=== PATIENT | female | born 1940 | race Caucasian/White ===

== ENCOUNTER 2024-11-02 05:35 | Inpatient (IN) | payer MEDICARE, SELFPAY ==
[2024-11-02] VITALS (20 sets, daily range): BP systolic 112–169; BP diastolic 45–79; BMI 26.2
[2024-11-02] MEDS: ZOFRAN ODT (ORALLY DISINTEGRATING) 4 MG PO (01:30)
[2024-11-02 01:55] LABS: % Basophils 0.3 % (0-2); % Eosinophils 0.3 % (0-6); % Immature Granulocytes 0.2 % (0-0.5); % Lymphocytes 11.7 % (20.5-51.1); % Monocytes 3.2 % (1.7-9.3); % Neutrophils 84.3 % (42.2-75.2); Absolute Lymphocytes 1.6 10^3/uL (1.2-3.4); Absolute Monocytes 0.4 10^3/uL (0.1-0.6); Absolute Neutrophils 11.1 10^3/uL (1.4-6.5); Hematocrit 41.2 % (37.0-47.0); Hemoglobin 13.8 g/dL (12.0-16.0); Mean Corp Hgb Conc. 33.5 g/dL (33.0-37.0); Mean Corpuscular Hgb 30.7 pg (27.0-31.0); Mean Corpuscular Volume 91.6 fL (81.0-99.0); Mean Platelet Volume 9.9 fL (7.4-10.4); Nucleated Red Blood Cells % 0 %; Platelet Count 253 10^3/uL (130-400); Red Cell Dist. Width 13.8 % (11.5-14.5); White Blood Cell Count 13.2 10^3/uL (4.8-10.8)
[2024-11-02 02:11] LABS: ALT (SGPT) 31 U/L (0-35); AST (SGOT) 40 U/L (14-36); Albumin 4.9 g/dl (3.5-5.0); Alkaline Phosphatase 64 U/L (38-126); Blood Urea Nitrogen 18 mg/dl (7-17); Calcium 9.8 mg/dl (8.4-10.2); Carbon Dioxide 27 mmol/L (22-30); Chloride 104 mmol/L (98-107); Glucose 165 mg/dl (70-99); Lipase 132 U/L (23-300); Potassium 4.7 mmol/L (3.5-5.1); Sodium 139 mmol/L (135-145); Total Bilirubin 0.8 mg/dl (0.2-1.3); Total Protein 8.2 g/dl (6.3-8.2); eGFR > 60.00
--- NOTE | 2024-11-02 02:22 | ED.GENMED ---
History of Present Illness
General
Chief Complaint: Abdominal Pain
Source: patient
Exam Limitations: none
Time Seen by Provider: 11/02/24 02:05
Nursing documentation reviewed up to this point in time: agreed with
History of Present Illness
History of Present Illness:
84-year-old female presents emergency room due to nausea vomiting and diffuse abdominal pain. She denies any diarrhea.
Past History
Past History
ED Past Medical History: Hypercholesterolemia and Other (Vertigo)
ED Past Surgical History:
Social History
Tobacco: Non-smoker
Alcohol: None
Drug: None
Personal:
Living: with family
Employment: Employed
Family History
Family History: CAD
Review of Systems
Review of Systems
Allergies reviewed?: Yes
All Other Systems: Not applicable
Constitutional: Reports no symptoms
EENT: Reports no symptoms
Respiratory: Reports no symptoms
Cardiac: Reports no symptoms
ABD/GI: Reports abdominal pain, nausea and vomiting
: Reports no symptoms
Musculoskeletal: Reports no symptoms
Skin: Reports no symptoms
Neurological: Reports no symptoms
Endocrine: Reports no symptoms
Hematologic/Lymphatic: Reports no symptoms
Psychiatric: Reports no symptoms
Phy Exam
Physical Exam
Physical Exam:
Physical Exam
General: Appears uncomfortable, afebrile pain
Neck: supple. no meningeal signs. normal posterior pharynx
Heart: s1/s2 regular rate and rhythm, no murmur. equal radial
pulses.
HEENT: Pupils equal round reactive to light, EOMI
Lungs: no acute respiratory distress. clear bilaterally
Abdomen: normal bowel sounds. Diffuse abdominal tenderness. no CVAT
Neuro: alert and oriented. no focal neurological deficits cranial nerves II through XII intact
Skin: no rash
Psychiatric: well kept. interactive and cooperative
Extremities: no edema. no calf tenderness. negative homans. good distal pulses
Course
Orders/Labs/Results
Orders:
Orders
11/02/24 01:29
Ondansetron Orally Disint [Zofran Odt (Orally Disintegrating)] 4 mg .ROUTE .STK-MED ONE
11/02/24 01:30
Ondansetron Orally Disint [Zofran Odt (Orally Disintegrating)] 4 mg PO NOW STA
11/02/24 01:46
Complete Blood Count/With Diff Urgent
Comprehensive Metabolic Panel Urgent
Lipase Urgent
11/02/24 02:21
Morphine Sulfate 4 mg IV NOW STA
Ondansetron Injectable [Zofran] 4 mg IV NOW STA
11/02/24 02:35
CT Abd/pel Without Iv Or Oral Urgent
Comment:
Reason For Exam: diffuse abd pain, n/v
11/02/24 03:20
Morphine Sulfate 4 mg .ROUTE .STK-MED ONE
11/02/24 03:22
Morphine Sulfate 4 mg IV NOW STA
11/02/24 04:00
Lactated Ringers [Lr] 1,000 ml IV BOLUS
11/02/24 04:21
NG Tube [GI tube insertion- Treatment] ONCE
Piperacillin/Tazo 4.5 Gram [Zosyn] 4.5 gram in 100 ml IV NOW
11/02/24 04:31
Lactic Acid Q4H
Comment: CANCEL 2nd LACTIC ACID IF 1st LACTIC ACID IS LESS THAN 2
11/02/24 04:44
Admit/Transfer Patient As Directed
Co-Sign Provider:
Level of Care: Inpatient admission
Assign to:: Medical/Surgical
Physician / Group: Julián
Diagnosis: SBO
Reason for Hospitalization: SBO
Expected length of stay greater than two midnights?: Yes
ELOS- Estimated Length of Stay in days: 2
I certify the patient meets the requirements for IP care: Yes
Lidocaine 2% [Lidocaine Uro-Jet 2%] 1 syringe .ROUTE .STK-MED ONE
PRN Pain Medication Management As Directed
May give lesser potent ordered pain med per pt: Yes
preference::
Protocol:: Medication orders for pain may be administered in a
manner that supports deferring to patient preference
when the pt is:
- Requesting an ordered lesser potent pain medication.
Least to most potent pain medications are defined
as: acetaminophen < NSAID < tramadol < opioids
(morphine, oxycodone, hydromorphone).
- Requesting a lesser dose of the same medication IF
ORDERED.
- Requesting a less intrusive route of administration
if both routes are prescribed by the provider (PO <
IV).
11/02/24 04:45
Code Status As Directed
Resuscitation Status: Full Code
11/02/24 04:54
Ondansetron Injectable [Zofran] 4 mg .ROUTE .STK-MED ONE
11/02/24 04:55
Ondansetron Injectable [Zofran] 4 mg IV NOW STA
11/02/24 05:09
Lidocaine 2% Mpf [Xylocaine Mpf 2%] 100 mg .ROUTE .STK-MED ONE
Propofol [Diprivan] 20 ml .ROUTE .STK-MED
Rocuronium [place] [Rocuronium] 50 mg .ROUTE .STK-MED ONE
11/02/24 05:17
Dexamethasone Sod Phosphate [Decadron] 20 mg .ROUTE .STK-MED ONE
Ondansetron Injectable [Zofran] 4 mg .ROUTE .STK-MED ONE
11/02/24 05:25
Fentanyl Citrate/Pf [Sublimaze] 100 mcg .ROUTE .STK-MED ONE
11/02/24 05:32
HYDROmorphone [Dilaudid] 0.25 mg IV PACU-Q5MPRN PRN
Meperidine [Demerol] 12.5 mg IV PACU-Q5MPRN PRN
Morphine Sulfate 1 mg IV PACU-Q5MPRN PRN
Ondansetron Injectable [Zofran] 4 mg IV PACU-ONCEPRN PRN
Prochlorperazine [Compazine] 5 mg IV PACU-ONCEPRN PRN
Notify MD As Directed
Notify physician if: for SDS patients with known or suspected sleep obstructive sleep apnea, monitor in the
PACU.
Notify MD for any apneic/desaturation episodes
O2 Therapy [RESP] Urgent
Titrate/Wean O2 to maintain O2 sat greater than (%): 92
Special Instructions: -Provide supplemental oxygen to achieve O2 sat of 92% or greater.
-After 15 min, may wean O2 and discontinue if patient is able to maintain O2 sat of 92%
or greater during recovery period.
If patient is a discharge home, without oxygen therapy, notify anestheiologist if
unable to maintain O2 SAT of 92% or greater on room air for MD clearance.
11/02/24 05:45
Normosol (Mult Electrolytes) [Normosol-R/Plasmalyte-A] 1,000 ml IV PER PROTOCOL
11/02/24 08:15
Lactic Acid Q4H
Comment: CANCEL 2nd LACTIC ACID IF 1st LACTIC ACID IS LESS THAN 2
Abnormal Lab Results
11/02/24 11/02/24
01:46 04:31
WBC 13.2 H 10^3/uL
(4.8-10.8)
Absolute Neuts (auto) 11.1 H 10^3/uL
(1.4-6.5)
Neutrophils % 84.3 H %
(42.2-75.2)
Lymphocytes % 11.7 L %
(20.5-51.1)
BUN 18 H mg/dl
(7-17)
Glucose 165 H mg/dl
(70-99)
Lactic Acid 3.2 H mmol/L
(0.7-2.0)
AST 40 H U/L
(14-36)
11/02/24 01:46
11/02/24 01:46
Vital Signs
Initial and Last Documented VS:
Initial Vital Signs
Temp Pulse Resp BP Pulse Ox
97.4 F 66 24 128/76 98
11/02/24 01:21 11/02/24 01:21 11/02/24 01:21 11/02/24 01:21 11/02/24 01:21
Last Documented Vital Signs
Temp Pulse Resp BP Pulse Ox
98.0 F 63 18 157/74 98
11/02/24 05:14 11/02/24 05:15 11/02/24 05:15 11/02/24 04:00 11/02/24 04:45
*Radiology
Radiology exam reviewed: radiology read reviewed (CT abdomen pelvis shows internal hernia with small bowel obstruction)
*Pulse Oximetry
Patient hypoxic: no
*Critical Care Note
Total Time (30-74mins, 75-104mins- exclusive of procedures): 32
comment:
Critical care statement: A total of 32 minutes of critical care time was provided for this patient. This includes management of unstable vital signs, evaluation of the patient at bedside, reviewing the patient's pertinent medical records, discussion
with consultants, review of old EKGs and review of pertinent medical records. This time with separate from time utilized to perform the aforementioned documented procedures
Patient Management
Social determinants of health affecting care: Living situation and Strong social support
Discussion with other providers: Hospitalist and Testing And Regulating Chief (Dr. Patel to take the OR.)
Escalation/DeEscalation of care consider admission/obs:
Admission did, directly to the OR
ED Attending Note
-
Portions of this chart may have been created with voice recognition software.� Occasional wrong word or��sound alike� substitutions may have occurred due to the inherent limitations of voice recognition software.
Discharge Plan
Departure
Patient Disposition: Admit
Date of Disposition: 11/02/24
Time of Disposition: 04:19
Admit to: OR
Presentation/result/management discussed w/ accepting MD/DO: Hospitalist
Patient with high blood pressure during this ER visit?: Yes
Condition: Good
Discharge Problem:
Internal hernia, Small bowel obstruction
Interventions
Interventions:
*Risk Screen - Suicide Last Done: 11/02/24 01:21
*General Assessment Last Done: 11/02/24 02:08
*Neglect/Abuse Screening Last Done: 11/02/24 01:21
*ED- Fall Risk Assessment Last Done: 11/02/24 02:08
*ED COVID-19 Vaccine History Last Done: 11/02/24 02:08
*Nursing Disposition Last Done: 11/02/24 05:55
GS-Tormyn-Jkrlysqucy Assessment Last Done: 11/02/24 02:08
Discharge Date and Time
Discharge Date/Time: 11/02/24 05:55
[2024-11-02] MEDS: ZOFRAN 4 MG IV ×2 (02:24→04:55)
[2024-11-02] MEDS: MORPHINE SULFATE 4 MG IV ×2 (02:24→03:22)
[2024-11-02] MEDS: LR 1000 IV (03:17)
[2024-11-02] MEDS: ZOSYN 100 IV (04:40)
--- NOTE | 2024-11-02 04:47 | HPS.HSE ---
Family Physician
-
Family Physician: Azul Sewell
Chief Complaint
-
Abd Pain, N/V
History of Present Illness
Patient is an 84y F with PMH significant for rheumatoid arthritis who presents to ED complaining of abdominal pain with N/V. Patient states that she was in her usual state of health until around 7PM this evening when she developed sudden onset
of upper abdominal pain. Pateint became nauseated and has had multiple episodes of non-bloody emesis overnight. Her symptoms persisted throughout the evening and she presented to the ED for further evaluation and treatment.
Patient denies any prior history of similar symptoms.
She denies any fevers / chills, diarrhea, bloody stools, etc. Her last BM was yesterday AM and was normal.
Medical History
Past Medical History
Past Medical History: Reports Other
Additional Past Medical History:
Rheumatoid Arthritis
GERD
Macular Degeneration
Dyslipidemia
Past Surgical History: Reports Other
Additional Past Surgical History:
Lumpectomy (Benign)
Cataracts
Social History
Tobacco: Non-smoker
Alcohol: None
Drug: None
Personal:
Living: With Family
Family History
Family History: Not pertinent
Allergies / Home Medications
Allergies reflects when Allergies were last updated in [employer].
Home Medications with original date entered in [employer]
Allergy/Medication List:
Allergies
Allergy/AdvReac Type Severity Reaction Status Date / Time
banana Allergy congestion Verified 11/02/24 01:24
clarithromycin [From Biaxin] Allergy fever Verified 11/02/24 01:24
strawberry Allergy congestion Verified 11/02/24 01:24
iv contrast Allergy Unknown Uncoded 11/02/24 02:40
Home Medications
aspirin 81 mg chewable tablet 81 mg PO . 1 TO 2 PER WEEK 11/29/14
ascorbic acid (vitamin C) 500 mg tablet (Vitamin C) 500 mg PO DAILY 06/27/18
rosuvastatin 5 mg tablet (Crestor) 5 mg PO .Q48H 06/27/18
fluticasone propionate 50 mcg/actuation nasal spray,suspension 1 spray intranasal DAILY PRN nasal congestion 12/06/22
cholecalciferol (vitamin D3) 100 mcg (4,000 unit) capsule 100 mcg PO ONCE 11/02/24
folic acid 2 tab PO DAILY 11/02/24
methotrexate sodium 2.5 mg tablet 15 mg PO QWEEK 11/02/24
omeprazole 20 mg capsule,delayed release 20 mg PO DAILY 11/02/24
Review of Systems
-
History Source: Patient
A 12 point ROS was completed and negative except as noted: Yes
Constitutional: Denies Fever or Chills
Respiratory: Denies Cough or Trouble Breathing
Cardiac: Denies Chest Pain or Palpitations
Abdomen/GI: Reports Abdominal Pain, Nausea and Vomiting; Denies Diarrhea or Constipated
: Denies Dysuria or Frequency
Musculoskeletal: Reports Joint Pain; Denies Edema
Neurological: Denies Dizzy or Headache
Physical Exam
Vital Signs
Vital Signs
Temp Pulse Resp BP Pulse Ox
98.3 F 78 19 157/74 96
11/02/24 02:45 11/02/24 04:15 11/02/24 04:15 11/02/24 04:00 11/02/24 04:15
Physical Exam
General: Other (84y F in no acute distress.)
HEENT: Moist mucous membranes and PERRLA
Respiratory: Clear; No Wheezes, Rales or Rhonchi
Cardiac: S1/S2 and Regular Rhythm; No Murmur
GI: Other (Bowel sounds present but diminished. Pos tenderness - mostly in the LUQ. No rebound / guarding.)
Musculoskeletal: No Clubbing, No Cyanosis and No Edema
Neuro: AO x 3
Laboratory Results
-
11/02/24 01:46
11/02/24 01:46
Laboratory Results
Total Bilirubin 0.8 mg/dl (0.2-1.3) 11/02/24 01:46
AST 40 U/L (14-36) H 11/02/24 01:46
ALT 31 U/L (0-35) 11/02/24 01:46
Alkaline Phosphatase 64 U/L (38-126) 11/02/24 01:46
Lipase 132 U/L (23-300) 11/02/24 01:46
Impression/Plan
-
A/P: Patient is an 84y F with PMH significant for RA who presents to ED complaining of abdominal pain with N/V starting this evening.
SBO
- Admit for further evaluation and treatment.
- CT scan shows dilated loops of small bowel in the LUQ.
- NG to be placed in the ED for decompression.
- NPO, IVFs, pain control and antiemetics.
- Surgery evaluation for additional recommendations.
- Follow for clinical improvement.
Rheumatoid Arthritis
- Stable. Hold MTX acutely.
GERD
- Stable. Continue PPI daily.
Dyslipidemia
- Takes statin + ASA for elevated lipids / calcium score.
- No prior TX, stent, etc. OK to hold acutely.
DVT Prophylaxis: SCDs
Code Status: Full
[2024-11-02 05:13] LABS: Lactic Acid 3.2 mmol/L (0.7-2.0)
--- NOTE | 2024-11-02 05:55 | CON.GS ---
Consultation
-
Date/Time Consultation Performed: 11/02/24
Requesting Provider: Nataly
Performing Provider: Amanda
Reason for Consultation: Abd pain
Medical History
-
Chief Complaint: Abd pain
History of Present Illness:
84F with acute onset abd pain, localized to left aaliyah-abdomen that began last night at 7PM. Pain progressive, severe, nonradiating, a/w n/v. Denies f/c. Normal BM yesterday. Never had similar issue in the past.
Past Medical History
Past Medical History: Other (Rheumatoid Arthritis GERD Macular Degeneration Dyslipidemia)
Past Surgical History: and Other (lumpectomy)
Social History
Tobacco: Non-Smoker
Alcohol: None
Drug: None
Personal:
Living: With Family
Family History
Family History: Reviewed & Noncontributory
Allergies / Home Medications
Allergy/AdvReac Type Severity Reaction Status Date / Time
banana Allergy congestion Verified 11/02/24 01:24
clarithromycin [From Biaxin] Allergy fever Verified 11/02/24 01:24
strawberry Allergy congestion Verified 11/02/24 01:24
iv contrast Allergy Unknown Uncoded 11/02/24 02:40
�Medication �Instructions �Recorded �Confirmed �Type
aspirin 81 mg chewable tablet 81 mg PO . 1 TO 2 PER WEEK 05/14/14 11/02/24 History
ascorbic acid (vitamin C) 500 mg 500 mg PO DAILY 06/27/18 11/02/24 History
tablet (Vitamin C)
rosuvastatin 5 mg tablet (Crestor) 5 mg PO .Q48H 06/27/18 11/02/24 History
fluticasone propionate 50 1 spray intranasal DAILY PRN nasal 12/06/22 11/02/24 History
mcg/actuation nasal congestion
spray,suspension
cholecalciferol (vitamin D3) 100 100 mcg PO ONCE 11/02/24 11/02/24 History
mcg (4,000 unit) capsule
folic acid 2 tab PO DAILY 11/02/24 11/02/24 History
methotrexate sodium 2.5 mg tablet 15 mg PO QWEEK 11/02/24 11/02/24 History
omeprazole 20 mg capsule,delayed 20 mg PO DAILY 11/02/24 11/02/24 History
release
Review of Systems
-
A 10 point review of systems was completed, and was negative except as per HPI.
Physical Exam
Vital Signs
Temp Pulse Resp BP Pulse Ox
98.0 F 63 18 157/74 98
11/02/24 05:14 11/02/24 05:15 11/02/24 05:15 11/02/24 04:00 11/02/24 04:45
10/31/24 11/01/24 11/02/24
06:59 06:59 06:59
Actual Weight 62.8 kg
Body Mass Index (BMI) 26.2
Lab Results
11/02/24 01:46
11/02/24 01:46
WBC 13.2 10^3/uL (4.8-10.8) H 11/02/24 01:46
Hgb 13.8 g/dL (12.0-16.0) 11/02/24 01:46
Hct 41.2 % (37.0-47.0) 11/02/24 01:46
Plt Count 253 10^3/uL (130-400) 11/02/24 01:46
Abs Immat Gran (auto) 0.0 10^3/uL (0-0.05) 11/02/24 01:46
Neutrophils % 84.3 % (42.2-75.2) H 11/02/24 01:46
Physical Exam
General: No Apparent Distress
GI: Soft and Tender (tt light palp LUQ with guarding, no tt light perc)
Skin: Warm and Dry
Neuro: AO x 3
Psych: Calm
Data Reviewed
-
CT Scan: Image Personally Visualized and interpreted, Report Reviewed by me, Discussed with Physician, Discussed with Patient and Discussed with Family
Labs: Labs Reviewed by me and Discussed with Physician
Assessment / Plan
-
84F with suspected closed loop SBO
AFVSS, tt light palp with guarding
Leukocytosis with left shift
CT with two apparent t-points in LUQ and a segment of small bowel with stranding and edema, no PV gas, no pneumatosis, no free air
Plan:
OCTOR for dx lap, possible ex lap, possible SBR
D/w patient and , expected procedure and post-op course discussed.
Informed consent obtained
All ?s answered
--- NOTE | 2024-11-02 07:22 | W.IMMPOSTOP ---
Surgical Immed Post Op Note
-
Primary Surgeon: Amanda
Pre-op Diagnosis: Closed loop small bowel obstruction
Post-op Diagnosis: Same
Procedure Performed: Diagnostic laparoscopy, lysis of adhesions, exploratory laparotomy, small bowel resection
Anesthesia Type: GETA
Specimen / Cultures: Small bowel
Estimated Blood Loss: 5cc
Complications: None immediate
Operative Findings: Omental bridge from transverse colon to small bowel mesentery with internal herniation of small bowel. Bridge lysed, loop of small bowel hemorrhagic and ischemic, approx 38cm small bowel resected, side-side stapled anastomosis,
ng verified in stomach
--- NOTE | 2024-11-02 07:24 | OR.RPT ---
Operative Report
Operative Report
Primary Surgeon: Amanda
Pre-op Diagnosis: Closed loop small bowel obstruction
Post-op Diagnosis: Same
Procedure Performed: Diagnostic laparoscopy, lysis of adhesions, exploratory laparotomy, small bowel resection
Anesthesia Type: GETA
Specimen / Cultures: Small bowel
Estimated Blood Loss: 5cc
Complications: None immediate
Operative Findings: Omental bridge from transverse colon to small bowel mesentery with internal herniation of small bowel. Bridge lysed, loop of small bowel hemorrhagic and ischemic, approx 38cm small bowel resected, side-side stapled anastomosis,
ng verified in stomach
Date of Surgery: 11/02/24
Indications: This 84F developed acute abdominal pain and on workup was found to have suspected closed loop small bowel obstruction. Diagnostic laparoscopy, possible exploratory laparotomy, possible small bowel resection was planned.
Description of procedure: The patient was placed on the operating table in the supine position. General anesthesia was induced. A time-out was completed verifying correct patient, procedure, site, positioning, and special equipment prior to
beginning this procedure. An orogastric tube was placed. The abdomen was prepped and draped in the usual sterile fashion. A stab incision was made in left upper quadrant and the Veress needle was inserted. Proper position was confirmed by aspiration
and saline meniscus test. The abdomen was insufflated with carbon dioxide to a pressure of 12 mmHg. The patient tolerated insufflation well. Initially the stomach was not decompressed. Anesthesia replaced the nasogastric tube and the stomach
decompressed nicely.
A 5mm optical trocar was then inserted at the right upper quadrant. The laparoscope was inserted and the abdomen inspected. No injuries from initial trocar placement or Veress needle insertion were noted. Additional 5mm trocars were then inserted in
the right lower quadrant and the suprapubic space. The abdomen was inspected and no abnormalities were found. The omentum was swept cephalad revealing a distended loop of small bowel. The transition point was identified and an omental bridge from
the transverse colon to the small bowel mesentery was noted. The voyant device was used to divide the bridge and liberate the bowel. The bowel was inspected and appeared ischemic and hemorrhagic. A limited supra-umbilical midline incision was made
and a small Jeancarlos wound protector was placed. The ischemic loop of bowel was exteriorized and resected with a YOKASTA 80mm purple load stapler and a side-side stapled anastomosis was created. The common channel was inspected prior to closure and was
hemostatic. The anastomosis was palpated and patency was confirmed. The voyant was used to liberate the resected bowel from its mesentery. Corners were dunked with 3-0 vicryl suture, a crotch stitch was placed and reinforcing sutures were placed in
Lembert fashion along the staple line. The mesenteric defect was closed with 3-0 vicryl.
We then turned our attention to the staple line, which was noted to be hemostatic. The abdomen was irrigated with sterile saline until effluent ran clear. The fascia was closed with 0 PDS stratafix suture. The subcutaneous tissue was irrigated with
sterile saline and the skin was lcosed with rachna. Topical dressings were applied.
The patient tolerated the procedure well and was taken to the postanesthesia care unit in stable condition.
[2024-11-02] MEDS: PROTONIX IV 40 MG IV (08:33)
[2024-11-02] MEDS: MORPHINE SULFATE 1 MG IV (08:42)
[2024-11-02] MEDS: ZOSYN 50 IV ×3 (09:45→22:02)
--- NOTE | 2024-11-02 13:12 | W.PN.UPDATE ---
Update Note
Progress Note Update
Non-billable addendum
Admitted 430 AM for SBO (closed loop) requiring urgent SBR and LUZMA this AM
Currently resting post-op
Assessment:
high grade SBO (closed loop on CT
- CT: High-grade proximal small bowel obstruction likely secondary to internal hernia. Cannot rule out developing ischemia.
- GS evaluated
- s/p urgent Diagnostic laparoscopy, lysis of adhesions, exploratory laparotomy, small bowel resection 11/02/24
- NPO/IVF
- NGT per GS
- pain control, anti-emetics
- continue IV Zosyn
Rheumatoid Arthritis
- Stable. Hold MTX acutely.
GERD
- Stable. Continue PPI daily.
Dyslipidemia
- Takes statin + ASA for elevated lipids/calcium score.
- No prior GA, stent, etc. OK to hold acutely.
DVT Prophylaxis: Lovenox
Code Status: Full
[2024-11-02] MEDS: NSS 1000 IV (13:37)
--- NOTE | 2024-11-02 14:30 | PTCARENOTE ---
Pt received from the PACU via bed. Transport was w/o incident. Pt is AAOx3, HRR, lungs are clear, abd sl tender with 4 Lap sites covered w/bandaids and one mid abd mepilex dressing, all intact. Scant spot of bloody drainage on bandaids. VSS, Pt is
afebrile. Pt instructed on plan of care. Pt verbalized understanding of instructions. Call bragg is within reach.
[2024-11-02] MEDS: NSS (PRESERVATIVE FREE) IV (16:21)
[2024-11-02] MEDS: LOVENOX 40 MG SC (18:10)
[2024-11-02] MEDS: DILAUDID 0.25 MG IV (22:19)
[2024-11-03] MEDS: NSS 1000 IV ×2 (01:25→13:38)
[2024-11-03 03:10] VITALS: BP 151/75
[2024-11-03] MEDS: ZOSYN 50 IV ×4 (04:26→21:03)
[2024-11-03] MEDS: PEPCID 20 MG IV (05:24)
[2024-11-03] MEDS: DECADRON 4 MG IV (05:26)
[2024-11-03] MEDS: NSS (PRESERVATIVE FREE) 8 ML IV (05:26)
[2024-11-03 07:11] LABS: Hematocrit 32.5 % (37.0-47.0); Hemoglobin 11.1 g/dL (12.0-16.0); Mean Corp Hgb Conc. 34.2 g/dL (33.0-37.0); Mean Corpuscular Hgb 31.3 pg (27.0-31.0); Mean Corpuscular Volume 91.5 fL (81.0-99.0); Mean Platelet Volume 10.3 fL (7.4-10.4); Platelet Count 218 10^3/uL (130-400); Red Blood Cell Count 3.55 10^6/uL (4.20-5.40); Red Cell Dist. Width 14.3 % (11.5-14.5)
[2024-11-03 07:35] VITALS: BP 149/61
[2024-11-03 08:21] LABS: Blood Urea Nitrogen 13 mg/dl (7-17); Calcium 7.8 mg/dl (8.4-10.2); Carbon Dioxide 27 mmol/L (22-30); Chloride 110 mmol/L (98-107); Estimated Creatinine Clearance 53 ml/min; Glucose 108 mg/dl (70-99); Potassium 3.9 mmol/L (3.5-5.1); Sodium 140 mmol/L (135-145); eGFR > 60.00
[2024-11-03] MEDS: HYDROCORTISONE 2.5% OINTMENT 1 APPLIC TOPICAL ×2 (08:49→21:03)
[2024-11-03] MEDS: NSS (PRESERVATIVE FREE) 10 ML IV (08:49)
[2024-11-03] MEDS: PROTONIX IV 40 MG IV (08:49)
[2024-11-03 09:09] LABS: Lactic Acid 1.2 mmol/L (0.7-2.0)
--- NOTE | 2024-11-03 09:29 | W.PN.HOSP.TC ---
Today's Communication/Plan
-
continue IVF/NPO
NGT
await ROBF
IV Abx
add IS
ambulate
Assessment / Plan
Assessment / Plan
Assessment:
high grade SBO (closed loop on CT
- CT: High-grade proximal small bowel obstruction likely secondary to internal hernia. Cannot rule out developing ischemia.
- GS following
- s/p urgent Diagnostic laparoscopy, lysis of adhesions, exploratory laparotomy, small bowel resection 11/02/24
- NPO/IVF
- NGT per GS
- pain control, anti-emetics
- continue IV Zosyn x 72 hours post-op, reviewed with Dr. Patel
Lactic acidosis from bowel ischemia
- resolved
Hypocalcemia
- monitor, if low again tomorrow will replete
Rheumatoid Arthritis
- Stable. Hold MTX acutely.
GERD
- Stable. Continue PPI daily.
Dyslipidemia
- Takes statin + ASA for elevated lipids/calcium score.
- No prior MN, stent, etc. OK to hold acutely.
DVT Prophylaxis: Lovenox
Code Status: Full
Anticipated Discharge: > 48 hours
Subjective/Interval History
-
Date of Service: November 03, 2024
s/p bowel resection surgery for SBO
NG remains in place
denies n/v
awaiting flatus or BM
eager to ambulate the halls
Objective Data
-
Labs:
Laboratory Results
11/03/24
06:42
WBC 11.0 H
Hgb 11.1 L
Hct 32.5 L
Plt Count 218
Sodium 140
Potassium 3.9
Chloride 110 H
Carbon Dioxide 27
BUN 13
Creatinine 0.7
Glucose 108 H
Calcium 7.8 L D
Vital Signs:
Vital Signs
Temp Pulse Resp BP Pulse Ox
98.5 F 80 18 149/61 98
11/03/24 07:35 11/03/24 07:35 11/03/24 07:35 11/03/24 07:35 11/03/24 07:35
I&O
11/02/24 11/03/24 11/04/24
06:59 06:59 06:59
Intake Total 2580 / 2580
Output Total 975 / 975
Balance 1605 / 1605
Physical Exam
-
General: No Apparent Distress
HEENT: Normocephalic, Atraumatic and Other (+NGT)
Respiratory: Negative Wheezes
Cardiac: Regular Rhythm and S1/S2
GI: Soft
Genito-urinary: No Costovertebral Tender
Neuro: AO x 3
Psych: Calm
Data Reviewed
-
Total Time Spent with Patient (in minutes): 42
Labs: Labs Reviewed by me
--- NOTE | 2024-11-03 09:42 | CM ---
Cm reviewed medical records. CM confirmed demographics. Patient lives independently. Patient does not have a history of VN, SNF or DME. Patient is active with her PCP. Patient will use [facility].
PLAN: home independently, strong family support.
--- NOTE | 2024-11-03 10:18 | W.PN.GS2 ---
Addendum entered and electronically signed by Jae Patel MD 11/03/24 10:26:
Pruritic macular rash to upper extremities legs and back, fading since d/c dilaudid
Ofimrev and toradol for pain for now
Original Note:
Today's Communication / Plan
-
NPO/IVF/NGT
IV abx
Assessment / Plan
-
84F POD1 s/p dx lap LUZMA converted to ex-lap for SBR of ischemic bowel
Low grade temp noted, otherwise VSS
Pain improving, exam approp
Low NGT output and taking ice chips
WBC improved, lactic normalized, Cr WNL
Plan:
NPO/IVF/NGT
Await ROBF
PRN pain meds and anti-emetics
DVT ppx
72 hrs post op IV abx
Ambulate (OK to clamp NGT for ambulation)
Subjective Data
-
Date of Service: November 03, 2024
Tmax 100.1, VSS, pain improving, denies n/v with ngt to suction, denies flatus or BM
Objective Data
-
Intake and Output
11/02/24 11/03/24 11/04/24
06:59 06:59 06:59
Intake Total 2580 / 2580
Output Total 975 / 975
Balance 1605 / 1605
Intake:
Oral fluids 480 / 480
IV fluids (Total) 1800 / 1800
Normosal 600 / 600
IV piggybacks 150 / 150
Amount instilled into GI Tube ( 150 / 150
Total)
[place] Sump 150 / 150
Output:
Gastrointestinal tube output ( 475 / 775
Total)
[place] Sump 775 / 775
Urine, Voided 200 / 200
Other:
Number of approximated MODERATE 2
amounts of urine
Number of approximated LARGE 1
amounts of urine
How many times incontinent 3
MODERATE amount urine
Vital Signs
Temp Pulse Resp BP Pulse Ox
98.5 F 80 18 149/61 98
11/03/24 07:35 11/03/24 07:35 11/03/24 07:35 11/03/24 07:35 11/03/24 07:35
Lab Results
11/03/24 06:42
11/03/24 06:42
Calcium 7.8 mg/dl (8.4-10.2) L D 11/03/24 06:42
Total Bilirubin 0.8 mg/dl (0.2-1.3) 11/02/24 01:46
AST 40 U/L (14-36) H 11/02/24 01:46
ALT 31 U/L (0-35) 11/02/24 01:46
Alkaline Phosphatase 64 U/L (38-126) 11/02/24 01:46
Total Protein 8.2 g/dl (6.3-8.2) 11/02/24 01:46
Albumin 4.9 g/dl (3.5-5.0) 11/02/24 01:46
Physical Exam
-
Gen: NAd
Abd: soft, incisions cdi, dressing cdi, moderately distended, approp ttp
Patient has a camacho catheter: No
Patient has a central line: No
[2024-11-03 15:35] VITALS: BP 139/68
[2024-11-03] MEDS: LOVENOX 40 MG SC (17:51)
[2024-11-03 23:00] VITALS: BP 131/62
[2024-11-04] MEDS: NSS IV (02:26)
[2024-11-04] MEDS: NSS 1000 IV ×3 (03:04→20:02)
[2024-11-04] MEDS: ZOSYN 50 IV (04:28)
[2024-11-04 06:12] LABS: Hematocrit 35.1 % (37.0-47.0); Hemoglobin 11.9 g/dL (12.0-16.0); Mean Corp Hgb Conc. 33.9 g/dL (33.0-37.0); Mean Corpuscular Hgb 31.2 pg (27.0-31.0); Mean Corpuscular Volume 91.9 fL (81.0-99.0); Mean Platelet Volume 10.6 fL (7.4-10.4); Platelet Count 237 10^3/uL (130-400); Red Blood Cell Count 3.82 10^6/uL (4.20-5.40); Red Cell Dist. Width 14.4 % (11.5-14.5); White Blood Cell Count 12.7 10^3/uL (4.8-10.8)
[2024-11-04 06:32] LABS: Blood Urea Nitrogen 13 mg/dl (7-17); Calcium 8.6 mg/dl (8.4-10.2); Carbon Dioxide 24 mmol/L (22-30); Chloride 109 mmol/L (98-107); Estimated Creatinine Clearance 53 ml/min; Glucose 82 mg/dl (70-99); Potassium 3.5 mmol/L (3.5-5.1); Sodium 141 mmol/L (135-145); eGFR > 60.00
[2024-11-04 07:18] VITALS: BP 144/57
--- NOTE | 2024-11-04 07:39 | W.PN.GS2 ---
Today's Communication / Plan
-
-- DC NGT, sips of clears
-- Pain control: Tylenol, Toradol, switch to Morphine if needed
-- Abx: Switch to Cipro/Flagyl, plan for 3 days post-op coverage, trend WBC
Assessment / Plan
-
Patient is a 84 yo F p/w closed loop SBO
POD2 s/p dx lap LUZMA converted to ex-lap for SBR of ischemic bowel
AVSS
Labs notable for slight rise in WBC, lactate normalized yesterday, normal renal function
Recovering well overall with early signs of ROBF. Plan to DC NGT and trial sips of clears throughout the day.
Uncertain exactly what to make of her rash - appears to be drug-related; possibly Dilaudid or Zosyn. Original plan for abx through POD#3. Will switch to Cipro/Flagyl to complete her post-op abx.
Plan:
-- DC NGT, sips of clears
-- Pain control: Tylenol, Toradol, switch to Morphine if needed
-- Abx: Switch to Cipro/Flagyl, plan for 3 days post-op coverage, trend WBC
-- DVT: Lovenox ppx
-- GI: PPI, on at home
-- OOB/ambulate
Subjective Data
-
Date of Service: November 04, 2024
Reports a rash on her bilateral forearms and lower extremities, nonpainful, not itchy. Rash developed approximately 48 hours ago. No nausea or vomiting. Reports passing flatus, no BM. Ambulating. Voiding. Afebrile over past 24 hrs.
Objective Data
-
Intake and Output
11/03/24 11/04/24 11/05/24
06:59 06:59 06:59
Intake Total 2580 / 2580 3020 / 3020
Output Total 975 / 975 675 / 675
Balance 1605 / 1605 2345 / 2345
Intake:
Oral fluids 480 / 480 240 / 240
IV fluids (Total) 1800 / 1800 2400 / 2400
Normosal 600 / 600
IV piggybacks 150 / 150 200 / 200
Amount instilled into GI Tube ( 150 / 150 180 / 180
Total)
[place] Sump 150 / 150 180 / 180
Output:
Gastrointestinal tube output ( 775 / 775 675 / 675
Total)
[place] Sump 775 / 775 675 / 675
Urine, Voided 200 / 200
Other:
Number of approximated MODERATE 2
amounts of urine
Number of approximated LARGE 1
amounts of urine
Vital Signs
Temp Pulse Resp BP Pulse Ox
98.3 F 78 16 131/62 96
11/03/24 23:00 11/03/24 23:00 11/03/24 23:00 11/03/24 23:00 11/03/24 23:00
Lab Results
11/04/24 05:31
11/04/24 05:31
Calcium 8.6 mg/dl (8.4-10.2) 11/04/24 05:31
Total Bilirubin 0.8 mg/dl (0.2-1.3) 11/02/24 01:46
AST 40 U/L (14-36) H 11/02/24 01:46
ALT 31 U/L (0-35) 11/02/24 01:46
Alkaline Phosphatase 64 U/L (38-126) 11/02/24 01:46
Total Protein 8.2 g/dl (6.3-8.2) 11/02/24 01:46
Albumin 4.9 g/dl (3.5-5.0) 11/02/24 01:46
Physical Exam
-
Gen: NAD
HEENT: minimal dark bilious output
Abd: soft, NT, minimal distension, non-peritoneal, dressings c/d/i
Patient has a camacho catheter: No
Patient has a central line: No
[2024-11-04] MEDS: HYDROCORTISONE 2.5% OINTMENT 1 APPLIC TOPICAL ×2 (08:44→21:20)
[2024-11-04] MEDS: PROTONIX IV 40 MG IV (08:45)
[2024-11-04] MEDS: NSS (PRESERVATIVE FREE) 10 ML IV (08:45)
[2024-11-04] MEDS: FLAGYL 500 MG 100 IV ×2 (10:44→17:46)
[2024-11-04] MEDS: CIPRO 400 MG 200 IV ×2 (10:44→21:20)
--- NOTE | 2024-11-04 12:18 | W.PN.HOSP.TC ---
Today's Communication/Plan
-
sips of clears; IVF renewed
continue IV Abx, pain control, anti-emetics
ambulation
Assessment / Plan
Assessment / Plan
Assessment:
high grade SBO (closed loop on CT
- CT: High-grade proximal small bowel obstruction likely secondary to internal hernia. Cannot rule out developing ischemia.
- GS following
- s/p urgent Diagnostic laparoscopy, lysis of adhesions, exploratory laparotomy, small bowel resection 11/02/24
- s/p NGT
- diet: sips of clears
- pain control, anti-emetics
- continue cipro/Flagyl x 72 hours post-op, reviewed with Surgical service
Lactic acidosis from bowel ischemia
- resolved
Hypocalcemia
- monitor, if low again tomorrow will replete
Rheumatoid Arthritis
- Stable. Hold MTX acutely.
GERD
- Stable. Continue PPI daily.
Dyslipidemia
- Takes statin + ASA for elevated lipids/calcium score.
- No prior TN, stent, etc. OK to hold acutely.
DVT Prophylaxis: Lovenox
Code Status: Full
Anticipated Discharge: > 48 hours
Subjective/Interval History
-
Date of Service: November 04, 2024
rash stable
+ flatus, no BM
ambulating
Objective Data
-
Labs:
Laboratory Results
11/04/24
05:31
WBC 12.7 H
Hgb 11.9 L
Hct 35.1 L
Plt Count 237
Sodium 141
Potassium 3.5
Chloride 109 H
Carbon Dioxide 24
BUN 13
Creatinine 0.7
Glucose 82
Calcium 8.6
Vital Signs:
Vital Signs
Temp Pulse Resp BP Pulse Ox
98.5 F 71 16 144/57 95
11/04/24 07:18 11/04/24 07:18 11/04/24 07:18 11/04/24 07:18 11/04/24 07:18
I&O
11/03/24 11/04/24 11/05/24
06:59 06:59 06:59
Intake Total 2580 / 2580 3020 / 3020 300 / 300
Output Total 975 / 975 675 / 675
Balance 1605 / 1605 2345 / 2345 300 / 300
Physical Exam
-
General: No Apparent Distress
HEENT: Normocephalic and Atraumatic
Respiratory: Negative Wheezes
Cardiac: Regular Rhythm and S1/S2
GI: Soft and Nontender
Neuro: AO x 3
Hematologic / Lymphatic: No Lymphadenopathy
Psych: Calm
Data Reviewed
-
Total Time Spent with Patient (in minutes): 42
Labs: Labs Reviewed by me
--- NOTE | 2024-11-04 14:13 | CM ---
CM following re: discharge planning.
Reviewed pt's chart, met with pt.
Pt is POD2 s/p dx lap LUZMA converted to ex-lap for SBR of ischemic bowel, continue supportive care/post operative recovery.
Pt reports she lives with 2SH, has 3 supportive children. Pt described herself as independent in all areas [employer]TER and pt stated she does not anticipate any after care VN services.
D/C plan: home with anticipated no after care VN needs. to transport at discharge.
CM will follow with discharge plan updates as hospitalization progresses
[2024-11-04 15:20] VITALS: BP 125/56
[2024-11-04] MEDS: LOVENOX 40 MG SC (17:46)
[2024-11-04 23:50] VITALS: BP 146/69
[2024-11-05] MEDS: FLAGYL 500 MG 100 IV ×3 (01:02→18:19)
[2024-11-05 07:06] LABS: Hematocrit 31.4 % (37.0-47.0); Hemoglobin 10.8 g/dL (12.0-16.0); Mean Corp Hgb Conc. 34.4 g/dL (33.0-37.0); Mean Corpuscular Hgb 31.5 pg (27.0-31.0); Mean Corpuscular Volume 91.5 fL (81.0-99.0); Mean Platelet Volume 10.2 fL (7.4-10.4); Platelet Count 217 10^3/uL (130-400); Red Blood Cell Count 3.43 10^6/uL (4.20-5.40); White Blood Cell Count 9.2 10^3/uL (4.8-10.8)
[2024-11-05 07:35] VITALS: BP 152/68
[2024-11-05 07:46] LABS: Blood Urea Nitrogen 10 mg/dl (7-17); Calcium 8.3 mg/dl (8.4-10.2); Carbon Dioxide 24 mmol/L (22-30); Chloride 107 mmol/L (98-107); Estimated Creatinine Clearance 61 ml/min; Glucose 72 mg/dl (70-99); Potassium 3.7 mmol/L (3.5-5.1); Sodium 139 mmol/L (135-145); eGFR > 60.00
[2024-11-05] MEDS: ZOFRAN 4 MG IV ×2 (07:58→13:58)
[2024-11-05] MEDS: PROTONIX IV 40 MG IV (07:58)
[2024-11-05] MEDS: NSS (PRESERVATIVE FREE) 10 ML IV (07:58)
[2024-11-05] MEDS: HYDROCORTISONE 2.5% OINTMENT 1 APPLIC TOPICAL ×2 (07:59→21:02)
--- NOTE | 2024-11-05 09:33 | W.PN.GS2 ---
Addendum entered and electronically signed by Stephane Barr MD 11/05/24 12:04:
I saw and examined the patient independently.
The Hr Generalist's note was reviewed and I agree with the note, assessment and plan except where noted below.
Comment: This is an 84-year-old female postoperative day 3 from a diagnostic laparoscopy converted to open lysis of adhesions/SBR (Dr. Patel).
NG tube out however still distended and belching. No emesis and still passing little bit of flatus. Distended on exam.
Will continue with sips of clears for now until more robust return of bowel function.
Pain control.
Cipro&Flagyl: d3/4
Surgery will continue to follow.
Original Note:
Today's Communication / Plan
-
Sips of clears
Assessment / Plan
-
Patient is a 84 yo F p/w closed loop SBO
POD 3 s/p dx lap LUZMA converted to ex-lap for SBR of ischemic bowel
AVSS
WBC normalized
Mild acute anemia suspect secondary to hemodilution with volume resuscitation in conjunction with expected OR losses
NGT out on 11/04
Distention with nausea/belching today; no emesis and still passing flatus
Suspect rash is due to zosyn, resolving
Plan:
-- Sips of clears as tolerated, hold on dietary advancement for now
-- Pain control: Tylenol, Toradol, switch to Morphine if needed
-- Abx: Continue Cipro/Flagyl, plan for 3 days post-op coverage
-- DVT: Lovenox ppx
-- GI: PPI, on at home
-- OOB/ambulate
-- Follow labs
Medical management as per primary team
Subjective Data
-
Date of Service: November 05, 2024
Patient seen and examined at bedside with Dr. Barr. C/O nausea and belching. Denies vomiting. Passing some flatus but not much. No BM's yet. ABD pain/bloating is a little worse today. Rash improving. More tired today.
Objective Data
-
Intake and Output
11/04/24 11/05/24 11/06/24
06:59 06:59 06:59
Intake Total 3020 / 3020 1600 / 1600 300 / 300
Output Total 675 / 675
Balance 2345 / 2345 1600 / 1600 300 / 300
Intake:
Oral fluids 240 / 240
IV fluids (Total) 2400 / 2400 1200 / 1200
IV piggybacks 200 / 200 400 / 400 300 / 300
Amount instilled into GI Tube ( 180 / 180
Total)
[place] Sump 180 / 180
Output:
Gastrointestinal tube output ( / 675
Total)
[place] Sump 675 / 675
Other:
Number of approximated MODERATE 2 2
amounts of urine
Number of approximated LARGE 1
amounts of urine
Vital Signs
Temp Pulse Resp BP Pulse Ox
98.5 F 74 18 152/68 100
11/05/24 07:35 11/05/24 07:35 11/05/24 07:35 11/05/24 07:35 11/05/24 08:00
Lab Results
11/05/24 06:47
11/05/24 06:47
Calcium 8.3 mg/dl (8.4-10.2) L 11/05/24 06:47
Total Bilirubin 0.8 mg/dl (0.2-1.3) 11/02/24 01:46
AST 40 U/L (14-36) H 11/02/24 01:46
ALT 31 U/L (0-35) 11/02/24 01:46
Alkaline Phosphatase 64 U/L (38-126) 11/02/24 01:46
Total Protein 8.2 g/dl (6.3-8.2) 11/02/24 01:46
Albumin 4.9 g/dl (3.5-5.0) 11/02/24 01:46
Physical Exam
-
Gen: NAD
Abd: soft, minimal incisional tenderness, mild to mod distension, non-peritoneal, dressings c/d/i
Fading nonpruritic rash to bilateral inner thighs and forearms
Patient has a camacho catheter: No
Patient has a central line: No
[2024-11-05] MEDS: NSS 1000 IV (10:25)
--- NOTE | 2024-11-05 10:39 | W.PN.HOSP.TC ---
Today's Communication/Plan
-
maintain NPO/sips of clears/IVF
follow GS recs
final day of Abx
Assessment / Plan
Assessment / Plan
Assessment:
high grade SBO (closed loop on CT
- CT: High-grade proximal small bowel obstruction likely secondary to internal hernia. Cannot rule out developing ischemia.
- GS following
- s/p urgent Diagnostic laparoscopy, lysis of adhesions, exploratory laparotomy, small bowel resection 11/02/24
- s/p NGT
- diet: sips of clears
- pain control, anti-emetics
- PPI
- continue Cipro/Flagyl x 72 hours post-op, reviewed with Surgical service
Nonpruritic rash to thighs, forearms - likely related to Dilaudid vs dermatitis from OR prep wash
- rash now fading on exam
- monitor clinically
Lactic acidosis from bowel ischemia
- resolved
Hypocalcemia
- dilutional, no indication for repletion
Rheumatoid Arthritis
- Stable. Hold MTX acutely.
GERD
- Stable. Continue PPI daily.
Dyslipidemia
- Takes statin + ASA for elevated lipids/calcium score.
- No prior HI, stent, etc. OK to hold acutely.
DVT Prophylaxis: Lovenox
Code Status: Full
Anticipated Discharge: > 48 hours
Subjective/Interval History
-
Date of Service: November 05, 2024
reports nausea/belching this morning, no vomiting.
minimal + Flatus. No BM.
Objective Data
-
Labs:
Laboratory Results
11/05/24
06:47
WBC 9.2
Hgb 10.8 L
Hct 31.4 L
Plt Count 217
Sodium 139
Potassium 3.7
Chloride 107
Carbon Dioxide 24
BUN 10
Creatinine 0.6
Glucose 72
Calcium 8.3 L
Vital Signs:
Vital Signs
Temp Pulse Resp BP Pulse Ox
98.5 F 74 18 152/68 100
11/05/24 07:35 11/05/24 07:35 11/05/24 07:35 11/05/24 07:35 11/05/24 08:00
I&O
11/04/24 11/05/24 11/06/24
06:59 06:59 06:59
Intake Total 3020 / 3020 1600 / 1600 300 / 300
Output Total 675 / 675
Balance 2345 / 2345 1600 / 1600 300 / 300
Physical Exam
-
General: No Apparent Distress
HEENT: Normocephalic and Atraumatic
Respiratory: Negative Wheezes
Cardiac: Regular Rhythm and S1/S2
GI: Soft
Musculoskeletal: No Edema
Skin: Rash (fading nonpruritic rash bilateral thighs/forearms)
Neuro: AO x 3
Psych: Calm
Data Reviewed
-
Total Time Spent with Patient (in minutes): 42
Labs: Labs Reviewed by me
[2024-11-05 11:47] VITALS: BMI 26.2
--- NOTE | 2024-11-05 13:42 | CM ---
CM following re: discharge planning.
Reviewed pt's chart, met with pt.
Pt is POD#3 s/p dx lap LUZMA converted to ex-lap for SBR of ischemic bowel, continue supportive care/post operative recovery.
Pt reports she lives with 2SH, has 3 supportive children. Pt described herself as independent in all areas [employer]CH[employer] and pt stated she does not anticipate any after care VN services.
D/C plan: home with anticipated no after care VN needs. to transport at discharge.
CM will follow with discharge plan updates as hospitalization progresses
[2024-11-05] MEDS: CIPRO 400 MG 200 IV ×2 (13:59→21:02)
[2024-11-05 15:05] VITALS: BP 140/76
[2024-11-05] MEDS: COMPAZINE 5 MG IV (15:14)
[2024-11-05] MEDS: LOVENOX 40 MG SC (18:19)
--- NOTE | 2024-11-05 18:29 | PTCARENOTE ---
pt c/o nausea this am-medicated with Zofran IV at 0800 with adequate relief. at 1300, pt then c/o nausea again. pt educated regarding frequency of medication-Zofran IV provided per AUG. pt this time c/o little relief of nausea. APPLIED RESEARCHER Clare Michael at
bedside and Compazine provided per AUG. pt then fell asleep. pt awoke at 1815, and felt that complazine was effective and denies c/o nausea at this time. tolerated few ice chips. care ongoing.
[2024-11-05 23:10] VITALS: BP 132/64
[2024-11-06] MEDS: FLAGYL 500 MG 100 IV ×3 (01:21→16:59)
[2024-11-06] MEDS: NSS 1000 IV (01:23)
[2024-11-06] MEDS: NSS IV ×3 (03:21→21:55)
[2024-11-06 07:10] VITALS: BP 149/77
[2024-11-06 07:17] LABS: Hematocrit 30.7 % (37.0-47.0); Hemoglobin 10.5 g/dL (12.0-16.0); Mean Corp Hgb Conc. 34.2 g/dL (33.0-37.0); Mean Corpuscular Hgb 31.4 pg (27.0-31.0); Mean Corpuscular Volume 91.9 fL (81.0-99.0); Mean Platelet Volume 10.2 fL (7.4-10.4); Platelet Count 244 10^3/uL (130-400); Red Blood Cell Count 3.34 10^6/uL (4.20-5.40); Red Cell Dist. Width 14.1 % (11.5-14.5); White Blood Cell Count 9.2 10^3/uL (4.8-10.8)
[2024-11-06 07:42] LABS: Blood Urea Nitrogen 10 mg/dl (7-17); Calcium 8.5 mg/dl (8.4-10.2); Carbon Dioxide 20 mmol/L (22-30); Chloride 110 mmol/L (98-107); Estimated Creatinine Clearance 61 ml/min; Glucose 87 mg/dl (70-99); Potassium 3.2 mmol/L (3.5-5.1); Sodium 140 mmol/L (135-145); eGFR > 60.00
[2024-11-06] MEDS: PROTONIX IV 40 MG IV (09:12)
[2024-11-06] MEDS: HYDROCORTISONE 2.5% OINTMENT TOPICAL ×2 (09:13→21:02)
[2024-11-06] MEDS: NSS (PRESERVATIVE FREE) 10 ML IV (09:13)
[2024-11-06] MEDS: CIPRO 400 MG 200 IV (09:14)
--- NOTE | 2024-11-06 09:35 | W.PN.GS2 ---
Addendum entered and electronically signed by Richard Locke MD 11/06/24 15:04:
I saw and examined the patient.
The CERTIFIED EXECUTIVE CHEF's note was reviewed and I agree with the note.
Comment:
Seen in am with PA.
Less discomfort. No nausea.
AFVSS. WBC 9.2.
Abdomen soft. Dressings removed. Inicison looked good.
DIet advanced to clears.
OOB.
Original Note:
Today's Communication / Plan
-
clear liquids
Assessment / Plan
-
Patient is a 84 yo F p/w closed loop SBO
POD 4 s/p dx lap LUZMA converted to ex-lap for SBR of ischemic bowel
AVSS
No leukocytosis, h/h stable
Mild hypokalemia
NGT out on 11/04
Nausea and distention much improved, passing flatus/stools
Suspect rash is due to zosyn, resolving
Plan:
-- Trial of clear liquids
-- Electrolyte replacement/IVF as per primary team
-- Pain control: Tylenol, Toradol, switch to Morphine if needed
-- Antiemetics prn
-- Abx: day 4/4 of antibiotics
-- DVT: Lovenox ppx
-- GI: PPI, on at home
-- OOB/ambulate
-- Follow labs
Medical management as per primary team
Subjective Data
-
Date of Service: November 06, 2024
Patient seen and examined at bedside. OOB to chair. Nausea much improved, no further belching. Has been passing flatus and some pasty loose stools. Pain improving.
Objective Data
-
Intake and Output
11/05/24 11/06/24 11/07/24
06:59 06:59 06:59
Intake Total 1600 / 1600 3100 / 3100
Balance 1600 / 1600 3100 / 3100
Intake:
IV fluids (Total) 1200 / 1200 2200 / 2200
IV piggybacks 400 / 400 900 / 900
Other:
Number of approximated MODERATE 2 3
amounts of urine
Number of unmeasured liquid
stools
Rectum 2 2
Vital Signs
Temp Pulse Resp BP Pulse Ox
98.6 F 76 16 149/77 100
11/06/24 07:10 11/06/24 07:10 11/06/24 07:10 11/06/24 07:10 11/06/24 07:10
Lab Results
11/06/24 06:28
11/06/24 06:28
Calcium 8.5 mg/dl (8.4-10.2) 11/06/24 06:28
Total Bilirubin 0.8 mg/dl (0.2-1.3) 11/02/24 01:46
AST 40 U/L (14-36) H 11/02/24 01:46
ALT 31 U/L (0-35) 11/02/24 01:46
Alkaline Phosphatase 64 U/L (38-126) 11/02/24 01:46
Total Protein 8.2 g/dl (6.3-8.2) 11/02/24 01:46
Albumin 4.9 g/dl (3.5-5.0) 11/02/24 01:46
Physical Exam
-
Gen: NAD
Abd: soft, minimal incisional tenderness, ND, non-peritoneal, dressings c/d/i
Fading nonpruritic rash to bilateral inner thighs and forearms
Patient has a camacho catheter: No
Patient has a central line: No
--- NOTE | 2024-11-06 09:39 | W.PN.HOSP.TC ---
Today's Communication/Plan
-
diet to clears; cap IVF if tolerating
last day of Abx
Assessment / Plan
Assessment / Plan
Assessment:
high grade SBO (closed loop on CT
- CT: High-grade proximal small bowel obstruction likely secondary to internal hernia. Cannot rule out developing ischemia.
- GS following
- s/p urgent Diagnostic laparoscopy, lysis of adhesions, exploratory laparotomy, small bowel resection 11/02/24
- s/p NGT
- diet: clears
- pain control, anti-emetics
- PPI
- day 09/17 Cipro/Flagyl post-op
Nonpruritic rash to thighs, forearms - likely related to Dilaudid vs dermatitis from OR prep wash
- rash now fading on exam
- monitor clinically
Lactic acidosis from bowel ischemia
- resolved
Hypocalcemia
- dilutional, no indication for repletion
Rheumatoid Arthritis
- Stable. Hold MTX acutely.
GERD
- Stable. Continue PPI daily.
Dyslipidemia
- Takes statin + ASA for elevated lipids/calcium score.
- No prior [place], stent, etc. OK to hold acutely.
DVT Prophylaxis: Lovenox
Code Status: Full
Anticipated Discharge: 24 - 48 hours
Subjective/Interval History
-
Date of Service: November 06, 2024
Nausea much improved, no further belching. Has been passing flatus and some pasty loose stools. Pain improving.
Objective Data
-
Labs:
Laboratory Results
11/06/24
06:28
WBC 9.2
Hgb 10.5 L
Hct 30.7 L
Plt Count 244
Sodium 140
Potassium 3.2 L
Chloride 110 H
Carbon Dioxide 20 L
BUN 10
Creatinine 0.6
Glucose 87
Calcium 8.5
Vital Signs:
Vital Signs
Temp Pulse Resp BP Pulse Ox
98.6 F 76 16 149/77 100
11/06/24 07:10 11/06/24 07:10 11/06/24 07:10 11/06/24 07:10 11/06/24 07:10
I&O
11/05/24 11/06/24 11/07/24
06:59 06:59 06:59
Intake Total 1600 / 1600 3100 / 3100
Balance 1600 / 1600 3100 / 3100
Physical Exam
-
General: No Apparent Distress
HEENT: Normocephalic and Atraumatic
Respiratory: Negative Wheezes
Cardiac: Regular Rhythm and S1/S2
GI: Soft and Nontender
Musculoskeletal: No Edema
Neuro: AO x 3
Psych: Calm
Data Reviewed
-
Total Time Spent with Patient (in minutes): 42
Labs: Labs Reviewed by me
[2024-11-06 15:15] VITALS: BP 138/63
[2024-11-06] MEDS: LOVENOX 40 MG SC (16:59)
[2024-11-06] MEDS: CIPRO 400 MG IV ×2 (21:02→21:15)
--- NOTE | 2024-11-06 21:30 | PTCARENOTE ---
Patient notified RN that her IV site and forearm was itchy, and visibly bright pink. IV cipro, which had just been started five minutes prior, was immediately stopped. NAVAL AIRCREWMAN Elizabeth Rodriguez notified as well as Amina Thorne IV RN who was on the unit. An
allergic reaction is suspected, IV cipro d/c and benadryl ordered by NAVAL AIRCREWMAN. IV site to be changed as well. Patient is resting in bed, no other complaints at this time. Assessment on going.
[2024-11-06] MEDS: BENADRYL 12.5 MG IV (22:14)
[2024-11-06 23:16] VITALS: BP 164/80
--- NOTE | 2024-11-06 23:44 | VATNOTE ---
VAT asked to move IV site due to reaction from medication. After assessing both arms for potential sites, there are not IV sites available that are not already affected by the rash or would impede the patient's toileting situation. The patient
reports she currently has very loose stools and using her hand as an IV site would not only making cleaning herself difficult it would open the site to infection. Primary RN contacted [employer] INST[employer]. At this time current IV site is flushing well, not reports of
pain. Will continue to monitor.
[2024-11-07] MEDS: FLAGYL 500 MG IV (02:14)
[2024-11-07 06:50] LABS: Hematocrit 29.8 % (37.0-47.0); Hemoglobin 10.4 g/dL (12.0-16.0); Mean Corp Hgb Conc. 34.9 g/dL (33.0-37.0); Mean Platelet Volume 9.9 fL (7.4-10.4); Platelet Count 269 10^3/uL (130-400); Red Blood Cell Count 3.35 10^6/uL (4.20-5.40); Red Cell Dist. Width 14.1 % (11.5-14.5); White Blood Cell Count 7.3 10^3/uL (4.8-10.8)
[2024-11-07 07:05] VITALS: BP 136/73
[2024-11-07 07:19] LABS: Blood Urea Nitrogen 3 mg/dl (7-17); Calcium 8.6 mg/dl (8.4-10.2); Carbon Dioxide 27 mmol/L (22-30); Chloride 105 mmol/L (98-107); Estimated Creatinine Clearance 61 ml/min; Glucose 100 mg/dl (70-99); Potassium 2.8 mmol/L (3.5-5.1); Sodium 139 mmol/L (135-145); eGFR > 60.00
[2024-11-07 07:34] LABS: Magnesium 1.6 mg/dl (1.6-2.3)
[2024-11-07] MEDS: KCL 40 MEQ PO ×2 (07:48→11:51)
[2024-11-07] MEDS: NSS (PRESERVATIVE FREE) 10 ML IV (07:49)
[2024-11-07] MEDS: PROTONIX IV 40 MG IV (07:50)
[2024-11-07] MEDS: FLUSH (NSS) 1 FLUSH IV (07:51)
[2024-11-07] MEDS: HYDROCORTISONE 2.5% OINTMENT TOPICAL ×2 (08:01→21:09)
[2024-11-07] MEDS: NSS IV (08:04)
--- NOTE | 2024-11-07 08:34 | W.PN.HOSP.TC ---
Today's Communication/Plan
-
see plan
Assessment / Plan
Assessment / Plan
Gen: NAD, AAOx3.
Eyes: EOMI, PERRLA, no scleral icterus.
Neck: supple.
CV: RRR, +S1/S2, no m/r/g.
Resp: CTAB, no rales, wheezes, or rhonchi.
Abd: +BS, soft, NT to light palpation, ND
Skin: No rashes.
Neuro: CN 2-12 intact, non-focal.
Psych: Normal mood and affect.
CT A/P 11/02/24: High-grade proximal small bowel obstruction likely secondary to internal hernia. Cannot rule out developing ischemia.
High grade SBO (closed loop on CT):
-s/p urgent Diagnostic laparoscopy, lysis of adhesions, exploratory laparotomy, small bowel resection 11/02/24
-surgery following
-had NGT, now removed
-completed 4 days Cipro/Flagyl post-op
-surgery following
-currently on full liquids
-pain control, anti-emetics
Hypokalemia:
-80meq K total
-Mg 1.6, 1g IV Mg
Other problems:
Nonpruritic rash to thighs, forearms: likely related to Dilaudid vs dermatitis from OR prep wash
Lactic acidosis from bowel ischemia, resolved
Hypocalcemia, dilutional
Rheumatoid Arthritis: Holding MTX acutely
GERD: cont PPI
Dyslipidemia: Cont statin
FULL/Lovenox
Anticipated Discharge: 24 - 48 hours
Subjective/Interval History
-
Date of Service: November 07, 2024
Patient reports 'explosions' of diarrhea. Denies abd pain.
Objective Data
-
Labs:
Laboratory Results
11/07/24
06:25
WBC 7.3
Hgb 10.4 L
Hct 29.8 L
Plt Count 269
Sodium 139
Potassium 2.8 L
Chloride 105
Carbon Dioxide 27
BUN 3 L
Creatinine 0.5 L
Glucose 100 H
Calcium 8.6
Vital Signs:
Vital Signs
Temp Pulse Resp BP Pulse Ox
98.6 F 82 16 136/73 96
11/07/24 07:05 11/07/24 07:05 11/07/24 07:05 11/07/24 07:05 11/07/24 07:05
I&O
11/06/24 11/07/24 11/08/24
06:59 06:59 06:59
Intake Total 3100 / 3100 1899 / 1899
Balance 3100 / 3100 1899 / 1899
[2024-11-07] MEDS: MAGNESIUM SULFATE 100 IV (10:20)
--- NOTE | 2024-11-07 10:23 | W.PN.GS2 ---
Today's Communication / Plan
-
FLD
Replace electrolytes
Assessment / Plan
-
Patient is a 84 yo F p/w closed loop SBO
POD 5 s/p dx lap LUZMA converted to ex-lap for SBR of ischemic bowel
AVSS
No leukocytosis, h/h stable
Hypokalemia
NGT out on 11/04
Nausea and distention resolved, passing flatus/stools and tolerating clears
Suspect rash is due to zosyn, resolving
Plan:
-- Advance to FLD, LRD in AM if tolerating
-- Replace K/Mg
-- Pain control: Tylenol, Toradol, switch to Morphine if needed
-- Antiemetics prn
-- Completed 4 days of ABX
-- D/C IVF now that she is tolerating PO
-- DVT: Lovenox ppx
-- GI: PPI, on at home
-- OOB/ambulate
-- Follow labs
Medical management as per primary team
Subjective Data
-
Date of Service: November 07, 2024
Patient seen and examined at bedside with Dr. Locke. Denies n/v. Passing loose stools/flatus. Tolerating clears. Difficulty overnight with her IV's.
Objective Data
-
Intake and Output
11/06/24 11/07/24 11/08/24
06:59 06:59 06:59
Intake Total 3100 / 3100 1899 / 1900
Balance 3100 / 3100 1900 / 1900
Intake:
Oral fluids 900 / 900
IV fluids (Total) 2200 / 2200 700 / 700
IV piggybacks 900 / 900 300 / 300
Other:
Number of approximated SMALL 5
amounts of urine
Number of approximated MODERATE 3 2
amounts of urine
Number of unmeasured liquid
stools
Rectum 2 2
Vital Signs
Temp Pulse Resp BP Pulse Ox
98.6 F 82 16 136/73 96
11/07/24 07:05 11/07/24 07:05 11/07/24 07:05 11/07/24 07:05 11/07/24 07:05
Lab Results
11/07/24 06:25
11/07/24 06:25
Calcium 8.6 mg/dl (8.4-10.2) 11/07/24 06:25
Magnesium 1.6 mg/dl (1.6-2.3) 11/07/24 06:25
Total Bilirubin 0.8 mg/dl (0.2-1.3) 11/02/24 01:46
AST 40 U/L (14-36) H 11/02/24 01:46
ALT 31 U/L (0-35) 11/02/24 01:46
Alkaline Phosphatase 64 U/L (38-126) 11/02/24 01:46
Total Protein 8.2 g/dl (6.3-8.2) 11/02/24 01:46
Albumin 4.9 g/dl (3.5-5.0) 11/02/24 01:46
Physical Exam
-
Gen: NAD
Abd: soft, minimal incisional tenderness, ND, non-peritoneal, dressings c/d/i
Fading nonpruritic rash to bilateral inner thighs and forearms
Patient has a camacho catheter: No
Patient has a central line: No
[2024-11-07 15:25] VITALS: BP 149/60
[2024-11-07] MEDS: LOVENOX 40 MG SC (17:54)
[2024-11-07 23:43] VITALS: BP 140/75
[2024-11-08 06:41] LABS: Blood Urea Nitrogen 5 mg/dl (7-17); Calcium 8.8 mg/dl (8.4-10.2); Carbon Dioxide 32 mmol/L (22-30); Chloride 105 mmol/L (98-107); Estimated Creatinine Clearance 61 ml/min; Glucose 102 mg/dl (70-99); Magnesium 1.8 mg/dl (1.6-2.3); Potassium 3.9 mmol/L (3.5-5.1); Sodium 140 mmol/L (135-145); eGFR > 60.00
[2024-11-08 07:03] VITALS: BP 121/68
[2024-11-08] MEDS: HYDROCORTISONE 2.5% OINTMENT TOPICAL ×2 (08:01→20:42)
[2024-11-08] MEDS: NSS (PRESERVATIVE FREE) 10 ML IV (08:01)
[2024-11-08] MEDS: PROTONIX IV 40 MG IV (08:01)
--- NOTE | 2024-11-08 08:39 | W.PN.HOSP.TC ---
Today's Communication/Plan
-
Goal for d/c tomorrow.
Assessment / Plan
Assessment / Plan
Gen: NAD, AAOx3.
Eyes: EOMI, PERRLA, no scleral icterus.
Neck: supple.
CV: RRR, +S1/S2, no m/r/g.
Resp: CTAB anteriorly, no rales, wheezes, or rhonchi.
Abd: Remains +BS, soft, NT to light palpation, ND
Skin: Macular, light-colored rash on lower extremities. Medial aspect of the left ankle with blotchy/dotted rash that is not raised, warm, or firm.
Neuro: CN 2-12 intact, non-focal.
Psych: Normal mood and affect.
CT A/P 11/02/24: High-grade proximal small bowel obstruction likely secondary to internal hernia. Cannot rule out developing ischemia.
High grade SBO (closed loop on CT):
-s/p urgent Diagnostic laparoscopy, lysis of adhesions, exploratory laparotomy, small bowel resection 11/02/24
-surgery following
-had NGT, now removed
-completed 4 days Cipro/Flagyl post-op
-surgery following, discussed with Dr. Mcmanus
-currently on full liquids, advance to low residue diet
-pain control, anti-emetics
Other problems:
Hypokalemia, resolved
Nonpruritic rash to thighs, forearms: likely related to Dilaudid vs dermatitis from OR prep wash
Lactic acidosis from bowel ischemia, resolved
Hypocalcemia, dilutional
Rheumatoid Arthritis: Holding MTX acutely
GERD: cont PPI
Dyslipidemia: Cont statin
FULL/Lovenox
Anticipated Discharge: Within 24 hours
Subjective/Interval History
-
Date of Service: November 08, 2024
No new complaints. Currently denies abdominal pain. States that stools are becoming more brown.
Objective Data
-
Labs:
Laboratory Results
11/08/24
05:33
Sodium 140
Potassium 3.9 D
Chloride 105
Carbon Dioxide 32 H
BUN 5 L
Creatinine 0.5 L
Glucose 102 H
Calcium 8.8
Vital Signs:
Vital Signs
Temp Pulse Resp BP Pulse Ox
97.7 F 78 17 121/68 97
11/08/24 07:03 11/08/24 07:03 11/08/24 07:03 11/08/24 07:03 11/08/24 07:03
I&O
11/07/24 11/08/24 11/09/24
06:59 06:59 06:59
Intake Total 1899 820 / 820
Balance 1899 820 / 820
--- NOTE | 2024-11-08 09:00 | W.PN.GS2 ---
Today's Communication / Plan
-
`
Assessment / Plan
-
Assessment: 84 yo F p/w closed loop SBO
POD#6 s/p dx lap LUZMA converted to ex-lap for SBR of ischemic bowel
AFVSS
doing well post op with returning GI function
Plan:
advance to low residue diet
PO meds
probable d/c in next 24hrs
Subjective Data
-
Date of Service: November 08, 2024
pt seen and examined
jossy diet advancement
stools improving, semiformed, less frequent at times
no nausea/vomiting
denies abdominal pain
some LLE bruising reported at ankle but no swelling today or calf tenderness/pains
Objective Data
-
Intake and Output
11/07/24 11/08/24 11/09/24
06:59 06:59 06:59
Intake Total 1900 / 1900 820 / 820
Balance 1900 / 1900 820 / 820
Intake:
Oral fluids 900 / 900 720 / 720
IV fluids (Total) 700 / 700
IV piggybacks 300 / 300 100 / 100
Other:
Number of approximated SMALL 5
amounts of urine
Number of approximated MODERATE 2 2
amounts of urine
Number of unmeasured liquid
stools
Rectum 2
Vital Signs
Temp Pulse Resp BP Pulse Ox
97.7 F 78 17 121/68 97
11/08/24 07:03 11/08/24 07:03 11/08/24 07:03 11/08/24 07:03 11/08/24 07:03
Lab Results
11/07/24 06:25
11/08/24 05:33
Calcium 8.8 mg/dl (8.4-10.2) 11/08/24 05:33
Magnesium 1.8 mg/dl (1.6-2.3) 11/08/24 05:33
Total Bilirubin 0.8 mg/dl (0.2-1.3) 11/02/24 01:46
AST 40 U/L (14-36) H 11/02/24 01:46
ALT 31 U/L (0-35) 11/02/24 01:46
Alkaline Phosphatase 64 U/L (38-126) 11/02/24 01:46
Total Protein 8.2 g/dl (6.3-8.2) 11/02/24 01:46
Albumin 4.9 g/dl (3.5-5.0) 11/02/24 01:46
Physical Exam
-
NAD AAOx3
ABD: soft, ND, NTTP
incisions with rachna, localized ecchymosis, no erythema, no drainage
LLE soft calf, no edema, nontender, faint area of petechia around ankle, will monitor
[2024-11-08 15:11] VITALS: BP 135/70
[2024-11-08] MEDS: LOVENOX 40 MG SC (17:57)
[2024-11-08] MEDS: MYLICON 80 MG PO (18:36)
[2024-11-08 23:07] VITALS: BP 148/64
[2024-11-09 07:50] VITALS: BP 122/74
[2024-11-09] MEDS: PROTONIX 40 MG PO (07:55)
[2024-11-09] MEDS: NSS (PRESERVATIVE FREE) IV (07:56)
[2024-11-09] MEDS: HYDROCORTISONE 2.5% OINTMENT TOPICAL (07:56)
--- NOTE | 2024-11-09 08:08 | W.PN.GS2 ---
Addendum entered and electronically signed by Jae Patel MD 11/15/24 09:29:
CDI: small bowel was acutely ischemic
Original Note:
Today's Communication / Plan
-
-- OK for DC from surgical standpoint
-- DC instructions updated
Assessment / Plan
-
Assessment: 84 yo F p/w closed loop SBO
POD#7 s/p dx lap LUZMA converted to ex-lap for SBR of ischemic bowel
AFVSS
Doing well post op with returning GI function
Plan:
-- LRD
-- Pain control: Tylenol
-- DVT: Lovenox
-- GI; home PPI
-- OK for DC from surgical standpoint
-- DC instructions updated
Subjective Data
-
Date of Service: November 09, 2024
No concerns or complaints. Pain well-controlled. No nausea or vomiting. Passing flatus and nonbloody stools. No dizziness or lightheadedness. Ambulating. Voiding.
Objective Data
-
Intake and Output
11/08/24 11/09/24 11/10/24
06:59 06:59 06:59
Intake Total 820 / 820 240 / 240
Balance 820 / 820 240 / 240
Intake:
Oral fluids 720 / 720 240 / 240
IV piggybacks 100 / 100
Other:
Number of approximated MODERATE 2 2
amounts of urine
Vital Signs
Temp Pulse Resp BP Pulse Ox
98.2 F 73 18 148/64 98
11/08/24 23:07 11/08/24 23:07 11/08/24 23:07 11/08/24 23:07 11/08/24 23:07
Lab Results
11/07/24 06:25
11/08/24 05:33
Calcium 8.8 mg/dl (8.4-10.2) 11/08/24 05:33
Magnesium 1.8 mg/dl (1.6-2.3) 11/08/24 05:33
Total Bilirubin 0.8 mg/dl (0.2-1.3) 11/02/24 01:46
AST 40 U/L (14-36) H 11/02/24 01:46
ALT 31 U/L (0-35) 11/02/24 01:46
Alkaline Phosphatase 64 U/L (38-126) 11/02/24 01:46
Total Protein 8.2 g/dl (6.3-8.2) 11/02/24 01:46
Albumin 4.9 g/dl (3.5-5.0) 11/02/24 01:46
Physical Exam
-
Gen: NAD
Abd: soft, NT, ND, non-peritoneal, incisions c/d/i - no erythema or drainage, ecchymosis at midline, soft, non-tender
Patient has a camacho catheter: No
Patient has a central line: No
--- NOTE | 2024-11-09 08:34 | W.PN.HOSP.TC ---
Today's Communication/Plan
-
d/c
Assessment / Plan
Assessment / Plan
Gen: NAD, AAOx3.
Eyes: EOMI, PERRLA, no scleral icterus.
Neck: supple.
CV: remains RRR, +S1/S2, no m/r/g.
Resp: CTAB anteriorly, no rales, wheezes, or rhonchi.
Abd: continues to remain +BS, soft, NT to light palpation, ND
Skin: intact
Neuro: CN 2-12 intact, non-focal.
Psych: Normal mood and affect.
CT A/P 11/02/24: High-grade proximal small bowel obstruction likely secondary to internal hernia. Cannot rule out developing ischemia.
High grade SBO (closed loop on CT):
-s/p urgent Diagnostic laparoscopy, lysis of adhesions, exploratory laparotomy, small bowel resection 11/02/24
-surgery following
-had NGT, now removed
-completed 4 days Cipro/Flagyl post-op
-surgery following and has cleared for d/c
-advanced to low residue diet, tolerating
-pain control, anti-emetics
Other problems:
Hypokalemia, resolved
Nonpruritic rash to thighs, forearms: likely related to Dilaudid vs dermatitis from OR prep wash
Lactic acidosis from bowel ischemia, resolved
Hypocalcemia, dilutional
Rheumatoid Arthritis: Holding MTX acutely
GERD: cont PPI
Dyslipidemia: Cont statin
FULL/Lovenox
Total time spent on d/c = 31 min. This included today's physical exam, progress note, review of laboratory and diagnostic data, preparation of discharge documents and prescriptions, and discussions about the pt's hospital course and discharge plan
with the patient and other medical concierge involved in the patient's care.
Anticipated Discharge: Today
Subjective/Interval History
-
Date of Service: November 09, 2024
No new complaints. Tolerating diet.
Objective Data
-
Vital Signs:
Vital Signs
Temp Pulse Resp BP Pulse Ox
98.0 F 76 18 122/74 99
11/09/24 07:50 11/09/24 07:50 11/09/24 07:50 11/09/24 07:50 11/09/24 07:50
I&O
11/08/24 11/09/24 11/10/24
06:59 06:59 06:59
Intake Total 820 / 820 240 / 240
Balance 820 / 820 240 / 240
--- NOTE | 2024-11-09 10:04 | CM ---
CM following re: discharge planning.
Reviewed pt's chart, met with pt.
Pt is POD#7 s/p dx lap LUZMA converted to ex-lap for SBR of ischemic bowel, doing well.
Discharge order noted. Pt is aware, expressed her agreement with discharge and pt stated her will transport home. IMM reviewed, placed on chart, pt has a copy.
No after care VN services indicated. Pt reports she is independent with functional ability and her will help as needed.
D/C plan: home with no after care VN needs. to transport.
--- NOTE | 2024-11-09 11:29 | W.DCSUMMARY ---
Discharge Summary
Discharge Data
Date of Admission: 11/02/24
Date of Discharge: 11/09/24
-
Pending Results: No
Hospital Course
Primary diagnoses:
Closed loop small bowel obstruction status post diagnostic laparoscopy, lysis of adhesions, exploratory laparotomy, small bowel resection
Secondary diagnoses:
Hypokalemia
Nonpruritic rash to thighs, forearms likely related to Dilaudid vs dermatitis from OR prep wash
Lactic acidosis from bowel ischemia
Hypocalcemia
Rheumatoid Arthritis
Gastroesophageal reflux disease
Dyslipidemia
Consultants:
General Surgery
Imaging:
CT A/P 11/02/24: High-grade proximal small bowel obstruction likely secondary to internal hernia. Cannot rule out developing ischemia.
Hospital course: 84-year-old female presented with chief complaints of nausea, vomiting, abdominal pain as outlined in H&P done on admission. Imaging above. Patient was taken for urgent diagnostic laparoscopy, lysis of adhesions, exploratory
laparotomy, and small bowel resection on 11/02/24. Patient tolerated the procedure well. She had an NG tube that was removed. She completed 4 days Cipro/Flagyl post-operatively. Patient's diet was advanced to a low residue diet which she was
tolerating at the time of discharge. She was cleared for discharge by general surgery and she was discharged in medically stable condition.
Discharge Plan
-
Patient Disposition: Home (Routine Discharge)
Discharge Diagnosis/Procedures: Closed loop small bowel obstruction status post diagnostic laparoscopy, lysis of adhesions, exploratory laparotomy, small bowel resection
Condition: Good
Diet: Low Residue
Additional Diets: Follow a low fiber or low residue diet for the next 2 to 3 weeks, discussed with surgeon at follow-up on advancing back to regular diet
Activity: No strenuous activity
Additional Activity: Do not lift over 15lbs for the next 3-4 weeks
Bathing Restrictions: OK to Shower
Wound Care: Jhonatan will be removed at your follow up visit with your surgeon 2-3 weeks after your surgery. Ok to wash your abdomen gently with soap and water. Cover incisions with gauze dressing and change daily if drainage noted, otherwise ok to
leave open to air.
Activity Restrictions/Additional Instructions:
Call your surgeon if you have nausea with vomiting, worsening abdominal pain or a fever >101
Referrals:
Jae Patel MD [Active] - in one week ([place])
Azul Sewell MD [Family Provider] -
Prescriptions:
Continued
aspirin 81 MG tablet,chewable
81 mg PO . 1 TO 2 PER WEEK
ascorbic acid (vitamin C) [Vitamin C] 500 MG tablet
500 mg PO DAILY
rosuvastatin [Crestor] 5 MG tablet
5 mg PO .Q48H
fluticasone propionate 50 mcg/actuation [place],Suspension
1 spray INTRANASAL DAILY PRN (Reason: nasal congestion)
cholecalciferol (vitamin D3) 100 mcg (4,000 unit) Capsule
100 mcg PO ONCE
omeprazole 20 mg Capsule,Delayed Release(Dr/Ec)
20 mg PO DAILY
methotrexate sodium 2.5 mg Tablet
15 mg PO QWEEK
Rx Instructions:
pt takes on saturdays
folic acid
2 tab PO DAILY
Rx Instructions:
unsure of mg
Discharge Orders:
Discharge Patient (As Directed); Ordered 11/09/24
Ordered By: Kuldip Canales
Discharge Date and Time
Discharge Date/Time: 11/09/24 11:05
Print Language: WOLOF
--- NOTE | 2024-11-10 11:10 | PN.CDI ---
CDI
- -
CDI:
Physician Documentation Request
Admit Date: 11/02/24 05:35
Dear Doctor Amanda,
Please review the following and provide your response in the progress notes.
Clinical Indicators:
- 11/02 Operative Report indicates ischemic small bowel without specificity to acuity
- 'loop of small bowel hemorrhagic and ischemic'
- 'The ischemic loop of bowel was exteriorized and resected'
Please clarify which of the following accurately represents the acuity of the small bowel ischemia.
Acute ischemic small bowel
Chronic ischemic small bowel
Acute on chronic ischemic small bowel
Other (please specify)
Use of terms such as suspected, likely, concern for, or probable (associated with a specific diagnosis that is being evaluated, monitored, or treated as if it exists) are acceptable and can be coded in the inpatient setting, when documented at the
time of discharge.
Thank you,
Daly Chavarria RN
CDI Specialist
Please use your independent medical judgment in providing your response.
== END 2024-11-09 11:05 | disposition home or self-care (01) | DRG 329 ==
LOC: 2 SOUTH 05:35
PROVIDERS: Internal Medicine; Registered Nurse; ADMITTING PHYSICIAN Hospitalist; ATTENDING PHYSICIAN Internal Medicine; CONSULT PHYSICIAN Surgery; EMERGENCY PHYSICIAN Emergency Medicine; FAMILY PHYSICIAN Family Medicine
PROC: 0DT80ZZ Resection of Small Intestine, Open Approach (ICD-10-PCS; 2024-11-02)
PROC: 0DNU4ZZ Release Omentum, Percutaneous Endoscopic Approach (ICD-10-PCS; 2024-11-02)
DX: K46.0 Unspecified abdominal hernia with obstruction, without gangrene (principal); K55.019 Acute (reversible) ischemia of small intestine, extent unspecified; E87.20 Acidosis, unspecified; E87.6 Hypokalemia; L27.1 Localized skin eruption due to drugs and medicaments taken internally; T40.2X5A Adverse effect of other opioids, initial encounter; E83.51 Hypocalcemia; M06.9 Rheumatoid arthritis, unspecified; K21.9 Gastro-esophageal reflux disease without esophagitis; E78.00 Pure hypercholesterolemia, unspecified; H35.30 Unspecified macular degeneration; D72.829 Elevated white blood cell count, unspecified; Z53.31 Laparoscopic surgical procedure converted to open procedure; Z79.82 Long term (current) use of aspirin
CPT/HCPCS: 88307; 43752; 74176; 80048; 80053; 83605; 83690; 83735; 85025; 85027; 96361; 96365; 96375; 96376; 99291; C1776

== ENCOUNTER 2025-01-27 08:16 | Outpatient (RCR) | payer MEDICARE, SELFPAY | END 2025-01-27 23:59 | disposition home or self-care (01) | LOC: RPT 08:16 | PROVIDERS: ATTENDING PHYSICIAN Internal Medicine Gastroenterology; FAMILY PHYSICIAN Family Medicine | DX: R15.1 Fecal smearing (principal); R15.2 Fecal urgency; Z73.6 Limitation of activities due to disability; M62.81 Muscle weakness (generalized) | CPT/HCPCS: 97163; 97530 ==

== ENCOUNTER 2025-03-03 14:52 | Outpatient (RCR) | payer MEDICARE, SELFPAY | END 2025-03-03 23:59 | disposition home or self-care (01) | LOC: RPT 14:52 | PROVIDERS: ATTENDING PHYSICIAN Internal Medicine Gastroenterology; FAMILY PHYSICIAN Family Medicine | DX: R15.1 Fecal smearing (principal); R15.2 Fecal urgency; Z73.6 Limitation of activities due to disability; M62.81 Muscle weakness (generalized) | CPT/HCPCS: 97110; 97112; 97140; 97530 ==

== ENCOUNTER 2025-04-07 14:45 | Outpatient (RCR) | payer MEDICARE, SELFPAY | END 2025-04-08 06:40 | disposition home or self-care (01) | LOC: RPT 14:45 | PROVIDERS: ATTENDING PHYSICIAN Internal Medicine Gastroenterology; FAMILY PHYSICIAN Family Medicine | DX: R15.1 Fecal smearing (principal); R15.2 Fecal urgency; Z73.6 Limitation of activities due to disability; M62.81 Muscle weakness (generalized) | CPT/HCPCS: 97110; 97112; 97530 ==